=== PATIENT | female | born 1975 | race American Indian/Alaskan Native ===

== ENCOUNTER 2017-04-11 14:23 | Emergency (ER) | payer MEDICAID ==
[2017-04-11 14:53] VITALS: BP 138/86
--- NOTE | 2017-04-11 15:06 | Emergency Department Report ---
Chief Complaint: Fall Stated Complaint: FALL/BACK AND HIP PAIN Time Seen by Provider: 04/11/17 15:02 - HPI History of Present Illness: patient is a 42 y/o female who presents due to hip pain and back pain x 3 weeks. Patient states that she has h/o of th left hip pain and was supposed to get x-rays outpatient that was ordered by her PCP. Patient states that she could not afford to have the x-rays. Patient states that she fell going down the stairs and made her left hip pain worse. Patient denies any head injury or LOC. - ROS Review of Systems: left hip pain and low back pain - Exam Vital Signs: Vital Signs 04/11/17 14:46 Temperature 98.7 F Pulse Rate 91 H Respiratory 18 Rate Blood Pressure 138/86 O2 Sat by Pulse 100 Oximetry Physical Exam: left hip tenderness, lower back tenderness. MSE screening note: Focused history and physical exam performed. Due to findings the following was ordered:left hip x-ray, lumbar spine x-ray. ED Disposition for MSE Condition: Stable
--- NOTE | 2017-04-11 16:24 | XRay Report ---
RIGHT HIP, 2 views: History: Right hip pain after fall. The bony architecture is intact without evidence of fracture or dislocation. No significant soft tissue abnormality is seen. IMPRESSION: Normal right hip.
--- NOTE | 2017-04-11 16:25 | XRay Report ---
LUMBOSACRAL SPINE, 3 VIEWS: History: Back pain Findings: The vertebral bodies, disk spaces and posterior elements are intact. No compression deformity or malalignment. Mild degenerative changes are noted in the lower lumbar spine. The SI joints are symmetric and unremarkable. Impression: Mild lumbar spondylosis. No acute injury identified.
--- NOTE | 2017-04-11 17:04 | Emergency Department Report ---
ED Back Pain/Injury HPI - General Chief Complaint: Fall Stated Complaint: FALL/BACK AND HIP PAIN Time Seen by Provider: 04/11/17 15:07 Source: patient Limitations: No Limitations - History of Present Illness Initial Comments: This is a 42-year-old female nontoxic, well nourished in appearance, no acute signs of distress presents to the ED complaining of low back pain status post fall that occurred today. Patient states she was walking down a flight of stairs the last 2 stairs she slipped and landed on her lumbar spine and right hip region. Patient states she has a chronic right hip pain x3 weeks that she follows up with her primary care doctor and was instructed to receive an x-ray the patient stated she could not afford x-rays and has not taken it. Patient stated back pain is radiating towards right lower extremity and this is a chronic issue but now became worse after fall. Patient denies any numbness, tingling, bladder or bowel stability, nausea, vomiting, loss of consciousness, head trauma, stiff neck, headache, blurry vision, chest pain, shortness of breath, abdominal pain, nausea or vomiting. Patient denies past medical history besides right hip pain. Allergies to penicillin and latex. MD Complaint: back pain -: This afternoon Similar Symptoms Previously: Yes Place: home Radiation: right leg Severity: mild Severity scale (0 -10): 8 Quality: aching Consistency: constant Improves With: immobilization, supine, sitting upright Worsens With: movement, walking Context: fall Associated Symptoms: denies other symptoms. denies: confusion, weakness, chest pain, numbness, difficulty walking, cough, difficulty urinating, diaphoresis, fever/chills, constipation, headaches, abdominal pain, loss of appetite, malaise , nausea/vomiting, rash, seizure, shortness of breath, syncope - Related Data Home Medications Medication Instructions Recorded Confirmed Last Taken FLUoxetine [Prozac] 07/31/13 07/31/13 Unknown [place] Carbonate [Eskalith] 07/31/13 07/31/13 Unknown diphenhydrAMINE [Benadryl] 07/31/13 07/31/13 Unknown Previous Rx's Medication Instructions Recorded Last Taken Type FLUoxetine [Prozac] 20 mg PO QDAY #30 capsule 07/31/13 Unknown Rx [place] Carbonate [Eskalith] 300 mg PO BID #60 capsule 07/31/13 Unknown Rx diphenhydrAMINE [Benadryl] 25 mg PO Q8HR PRN #14 capsule 07/31/13 Unknown Rx Acetaminophen/Codeine [Tylenol #3] 1 tab PO Q6H PRN #15 tab 06/18/15 Unknown Rx Ibuprofen [Motrin 800 MG tab] 800 mg PO Q8HR PRN #30 tablet 06/18/15 Unknown Rx Cyclobenzaprine [Flexeril] 10 mg PO BID PRN #10 tablet 04/11/17 Unknown Rx Ibuprofen [Motrin 600 MG tab] 600 mg PO Q8H PRN #30 tablet 04/11/17 Unknown Rx Allergies Allergy/AdvReac Type Severity Reaction Status Date / Time latex Allergy Rash Verified 07/31/13 05:40 Penicillins Allergy Rash Verified 07/31/13 05:40 ED Review of Systems ROS: Stated complaint: FALL/BACK AND HIP PAIN Other details as noted in HPI Constitutional: denies: chills, fever Eyes: denies: eye pain, eye discharge, vision change ENT: denies: ear pain, throat pain Respiratory: denies: cough, shortness of breath, wheezing Cardiovascular: denies: chest pain, palpitations Endocrine: no symptoms reported Gastrointestinal: denies: abdominal pain, nausea, diarrhea Genitourinary: denies: urgency, dysuria, discharge Musculoskeletal: back pain. denies: joint swelling, arthralgia Skin: denies: rash, lesions Neurological: denies: headache, weakness, paresthesias Psychiatric: denies: anxiety, depression Hematological/Lymphatic: denies: easy bleeding, easy bruising ED Past Medical Hx - Past Medical History Hx Psychiatric Treatment: Yes (BIPOLAR) Additional medical history: PTSD,chronic right hip pain - Surgical History Past Surgical History?: No - Social History Smoking Status: Never Smoker Substance Use Type: None - Medications Home Medications: Home Medications Medication Instructions Recorded Confirmed Last Taken Type FLUoxetine [Prozac] 07/31/13 07/31/13 Unknown History FLUoxetine [Prozac] 20 mg PO QDAY #30 capsule 07/31/13 Unknown Rx [place] Carbonate [Eskalith] 07/31/13 07/31/13 Unknown History [place] Carbonate [Eskalith] 300 mg PO BID #60 capsule 07/31/13 Unknown Rx diphenhydrAMINE [Benadryl] 07/31/13 07/31/13 Unknown History diphenhydrAMINE [Benadryl] 25 mg PO Q8HR PRN #14 capsule 07/31/13 Unknown Rx Acetaminophen/Codeine [Tylenol #3] 1 tab PO Q6H PRN #15 tab 06/18/15 Unknown Rx Ibuprofen [Motrin 800 MG tab] 800 mg PO Q8HR PRN #30 tablet 06/18/15 Unknown Rx Cyclobenzaprine [Flexeril] 10 mg PO BID PRN #10 tablet 04/11/17 Unknown Rx Ibuprofen [Motrin 600 MG tab] 600 mg PO Q8H PRN #30 tablet 04/11/17 Unknown Rx ED Physical Exam - General Limitations: No Limitations General appearance: alert, in no apparent distress - Head Head exam: Present: atraumatic, normocephalic, normal inspection - Eye Eye exam: Present: normal appearance, PERRL, EOMI. Absent: scleral icterus, conjunctival injection, nystagmus, periorbital swelling, periorbital tenderness Pupils: Present: normal accommodation - ENT ENT exam: Present: normal exam, normal orophraynx, mucous membranes moist, TM's normal bilaterally, normal external ear exam - Neck Neck exam: Present: normal inspection, full ROM. Absent: tenderness, meningismus, lymphadenopathy, thyromegaly - Respiratory Respiratory exam: Present: normal lung sounds bilaterally. Absent: respiratory distress, wheezes, rales, rhonchi, stridor, chest wall tenderness, accessory muscle use, decreased breath sounds, prolonged expiratory - Cardiovascular Cardiovascular Exam: Present: regular rate, normal rhythm, normal heart sounds. Absent: systolic murmur, diastolic murmur, rubs, gallop - GI/Abdominal GI/Abdominal exam: Present: soft, normal bowel sounds. Absent: distended, tenderness, guarding, rebound, rigid, diminished bowel sounds - Rectal Rectal exam: Present: deferred - Extremities Exam Extremities exam: Present: normal inspection, full ROM, normal capillary refill. Absent: tenderness, pedal edema, joint swelling, calf tenderness - Expanded Lower Extremity Exam Left Hip exam: Present: normal inspection, full ROM, tenderness, external rotation, internal rotation, pelvic stability. Absent: swelling, abrasion, laceration, ecchymosis, deformity, crepidus, dislocation, erythema, shortening Upper Leg exam: Present: normal inspection, full ROM. Absent: abrasion, laceration, ecchymosis, deformity, crepidus, dislocation, erythema Knee exam: Present: normal inspection, full ROM, full knee extension. Absent: tenderness, swelling, abrasion, laceration, ecchymosis, deformity, crepidus, dislocation, erythema, effusion, pain w/ pronation/supination, posterior draw sign, pain/laxity with valgus, pain/laxity with varus Lower Leg exam: Present: normal inspection, full ROM Ankle exam: Present: normal inspection, full ROM Foot/Toe exam: Present: normal inspection, full ROM Neuro vascular tendon exam: Present: no vascular compromise. Absent: pulse deficit, abnormal cap refill, motor deficit, sensory deficit, tendon deficit, extremity cold to touch, pallor, abnormal 2-point discrimination, decreased fine /light touch, foot drop, peroneal nerve deficit, significant pain with passive ROM of distal joint Gait: Positive: observed and normal - Back Exam Back exam: Present: normal inspection, full ROM, paraspinal tenderness (lumbar region). Absent: tenderness, CVA tenderness (R), CVA tenderness (L), muscle spasm, vertebral tenderness, rash noted - Expanded Back Exam Expanded Back exam: Absent: saddle anesthesia Back exam: Negative Straight Leg Raising: Left, Right - Neurological Exam Neurological exam: Present: alert, oriented X3, CN II-XII intact, normal gait, reflexes normal - Psychiatric Psychiatric exam: Present: normal affect, normal mood - Skin Skin exam: Present: warm, dry, intact, normal color. Absent: rash ED Course Vital Signs 04/11/17 14:46 Temperature 98.7 F Pulse Rate 91 H Respiratory 18 Rate Blood Pressure 138/86 O2 Sat by Pulse 100 Oximetry - Reevaluation(s) Reevaluation #1: 04/11/17 17:07 Patient is speaking in full sentences with no signs of distress noted. ED Medical Decision Making - Medical Decision Making 42-year-old female that presents with low back strain and chronic right hip pain. X-ray has been obtained of lumbar spine and right hip and femur radiologist with negative findings of any abnormalities. Patient notified of x- ray results with no further questionable by the patient. Patient received Toradol 30 mg IM and ED with vegetative symptoms are improving and subsiding. Upon examination there is normal abduction and adduction of the hip. Normal range of motion. Normal gait. Patient was prescribed Flexeril due to examination consistent with muscular pain/spasm and ibuprofen and discharged and was instructed not to operate any machinery while to get Flexeril due to sedation/drowsiness. Patient was instructed to follow-up with a primary care doctor/orthopedic doctor in 3-5 days or if symptoms worsen and continue return to emergency room as soon as possible possible. Patient is hemodynamically stable with stable vital signs. Patient states he is feeling better. At time time of discharge, the patient does not seem toxic or ill in appearance. No acute signs of distress noted. Patient agrees to discharge treatment plan of care. No further questions noted by the patient. Critical care attestation.: If time is entered above; I have spent that time in minutes in the direct care of this critically ill patient, excluding procedure time. ED Disposition Clinical Impression: Right hip pain Fall Qualifiers: Encounter type: initial encounter Qualified Code(s): W19.XXXA - Unspecified fall, initial encounter Low back strain Qualifiers: Encounter type: initial encounter Qualified Code(s): S39.012A - Strain of muscle, fascia and tendon of lower back, initial encounter Disposition: DC- TO HOME OR SELFCARE Is pt being admited?: No Does the pt Need Aspirin: No Condition: Stable Instructions: Low Back Strain (ED), Cyclobenzaprine (By mouth), Ibuprofen (By mouth) Additional Instructions: Follow-up with a primary care doctor/orthopedic doctor in 3-5 days or if symptoms worsen and continue return to emergency room as soon as possible possible. Take ibuprofen and Flexeril as prescribed. Do not operate heavy machinery while taking Flexeril due to sedation Prescriptions: Cyclobenzaprine [Flexeril] 10 mg PO BID PRN #10 tablet PRN Reason: Muscle Spasm Ibuprofen [Motrin 600 MG tab] 600 mg PO Q8H PRN #30 tablet PRN Reason: Pain Referrals: PRIMARY MD ARIEL [Primary Care Provider] - 3-5 Days YIN DUENAS MD [Staff Physician] - 3-5 Days CLEMENTE LUKE MD [Staff Physician] - 3-5 Days [facility] [Outside] - 3-5 Days [facility] [Outside] - 3-5 Days Forms: Work/School Release Form(ED)
== END 2017-04-11 18:03 | disposition home or self-care (01) ==
LOC: ED 14:23
DX: S39.012A Strain of muscle, fascia and tendon of lower back, initial encounter (principal); M25.551 Pain in right hip; F31.9 Bipolar disorder, unspecified; Z91.040 Latex allergy status; W10.8XXA Fall (on) (from) other stairs and steps, initial encounter; Y93.89 Activity, other specified; Y92.89 Other specified places as the place of occurrence of the external cause; Y99.8 Other external cause status; Z88.0 Allergy status to penicillin
CPT/HCPCS: 72100; 99283